=== PATIENT | female | born 1980 | race Two or more races ===

== ENCOUNTER → 2020-01-18 | Day surgery (SDC) | payer MEDICAID ==
[2020-01-15 10:41] LABS: APPEARANCE,URINE SLIGHTLY CLOUDY; BILIRUBIN, URINE NEGATIVE (NEGATIVE); COLOR,URINE PALE YELLOW; GLUCOSE, URINE (UA) NEGATIVE (NEGATIVE); KETONES,URINE NEGATIVE (NEGATIVE); LEUKOCYTE ESTERASE ,URINE 2+ (NEGATIVE); NITRITE,URINE NEGATIVE (NEGATIVE); PH,URINE 6.5 (4.5-8.0); PROTEIN,URINE NEGATIVE (NEGATIVE); UROBILINOGEN,URINE NORMAL MG/DL (0.0-1.0)
[2020-01-15 10:46] LABS: ANION GAP 5 mmol/L (5-15); BLOOD UREA NITROGEN 15 mg/dL (7-18); CALCIUM 8.5 MG/DL (8.5-10.1); CARBON DIOXIDE 29 MMOL/L (21-32); CHLORIDE 105 MMOL/L (98-107); CREATININE 0.8 MG/DL (0.55-1.30); POTASSIUM 3.8 MMOL/L (3.5-5.1); SODIUM 139 MMOL/L (136-145)
[2020-01-15 10:53] LABS: INR 1.1 (0.9-1.1)
[2020-01-15 11:04] LABS: BASOPHILS % (AUTO) 0.8 % (0.0-2.0); EOSINOPHILS % (AUTO) 2.5 % (0.0-3.0); HEMATOCRIT 40.8 % (37.0-47.0); HEMOGLOBIN 14.1 G/DL (12.0-16.0); MEAN CORPUSCULAR VOLUME 86 FL (80-99); MONOCYTES % (AUTO) 9.7 % (1.0-10.0); PLATELET COUNT 278 K/UL (150-450); RED BLOOD COUNT 4.76 M/UL (4.20-5.40); RED CELL DISTRIBUTION WIDTH 11.6 % (11.6-14.8); WHITE BLOOD COUNT 6.7 K/UL (4.8-10.8)
--- NOTE | 2020-01-15 12:45 | Pre-op HX & Phy Repo 2 SIG ---
DATE OF ADMISSION: 01/18/2020 DATE OF PLANNED SURGERY: Scheduled for outpatient surgery, January 18, 2020. HISTORY OF PRESENT ILLNESS: The patient is a 39-year-old female in overall good health with ductal carcinoma in situ of the left breast. The patient underwent imaging because of complaints of breast pain. She was found to have, in the left breast at 12 o'clock 2 cm from the nipple, a suspicious area measuring 0.8 x 0.8 x 1 cm. Core biopsy revealed ductal carcinoma in situ and a fibroadenomatoid nodule. She is scheduled to undergo left breast partial mastectomy with preoperative needle localization. The imaging also showed a benign stable mass in the right breast, which is being followed. PAST MEDICAL HISTORY/MEDICATIONS: None. ALLERGIES: None. OPERATIONS: Surgery for ectopic . REVIEW OF SYSTEMS: 3, para 3. She has regular menstrual periods. PHYSICAL EXAMINATION: GENERAL: The patient is 5 feet, 147 pounds. VITAL SIGNS: Within normal limits. HEENT: Within normal limits. LUNGS: Clear. HEART: Regular rhythm. BREASTS: Small and non-ptotic. There is no palpable mass in either breast. There is no axillary or supraclavicular lymphadenopathy. ABDOMEN: Soft. PELVIC: Per primary care. RECTAL: Per primary care. EXTREMITIES: Without edema. NEUROLOGIC: Physiologic. IMPRESSION: Ductal carcinoma in situ, left breast. PLAN: Left breast partial mastectomy with preoperative needle localization. I have had a full discussion with the patient regarding the nature of her condition, the nature of the surgery, indications, alternatives, options, and risks including bleeding, infection, scarring or distortion of breast or nipple, need for additional treatments based on final pathology, etc. The patient understands and agrees to proceed. Socrates Dunn M.D. DR: JANIYA JOB#: [id number] CC:
[~2020-01-18] VITALS: Ht 154.9 cm; Wt 66.7 kg
[2020-01-18] VITALS (10 sets, daily range): BP systolic 98–122; BP diastolic 57–79
[~2020-01-18] MED LIST: Bacitracin 50000 Units Vial ONE; D5 1/2NS 1,000 ML IV SCH; DiphenhydrAMINE 50mg/ml Inj IVP PRN; HYDROcodone/Acetamin 5/325 tab ORAL PRN; HYDROmorphone 1mg/ml Carpuject SUBQ PRN; Ketorolac 30mg Inj IV PRN; LORazepam Inj 2mg/ml 1ml IV PRN; LR 1000ml 1,000 ML IVLG SCH; LR 1000ml ONE; Labetalol 5mg/ml 20ml vial IV PRN; Lidocaine 1% MPF 10mg/ml 5ml ONE; Metoclopramide 10mg/2ml Inj IVP PRN; Midazolam 2mg/2ml Inj ONE; NS Irrig 1000ml ONE; NeoSporin Gu Irrig 1ml Amp IRRIG ONE; Sterile Water Irrig 1000ml IRRIG ONE; Tylenol #3 tab (300mg/30mg) ORAL PRN; fentaNYL 100 mcg/2 mL IV ONE; fentaNYL 100 mcg/2 mL IV PRN
--- NOTE | 2020-01-18 05:44 | Anethesia Preoperative Eval ---
Anesthesia Pre-op PMH/ROS General Date of Evaluation: Jan 18, 2020 Anesthesiologist: Dakota ASA Score: ASA 3 Mallampati Score Class I : Soft palate, uvula, fauces, pillars visible Class II: Soft palate, uvula, fauces visible Class III: Soft palate, base of uvula visible Class IV: Only hard plate visible Mallampati Classification: Class II Surgeon: Mona Diagnosis: Left breast cancer Surgical Procedure: Left breast partial mastectomy Anesthesia History: none Family History: no anesthesia problems Allergies: Coded Allergies: No Known Allergies (Unverified , 01/18/20) Medications: see eMAR Patient NPO?: Yes NPO Date: Jan 18, 2020 NPO Time: 00:00 Past Medical History Cardiovascular: Denies: HTN, CAD, AR, valve dz, arrhythmia, other Pulmonary: Denies: asthma, COPD, CHRIS, other Gastrointestinal/Genitourinary: Denies: GERD, CRI, ESRD, other Neurologic/Psychiatric: Denies: dementia, CVA, depression/anxiety, TIA, other Endocrine: Denies: DM, hypothyroidism, steroids, other HEENT: Denies: cataract (L), cataract (R), glaucoma, [place] (L), [place] (R), other Hematology/Immune: Denies: anemia, DVT, bleeding disorder, other Musculoskeletal/Integumentary: Reports: other - Left breast cancer; Denies: OA, RA, DJD, DDD, edema PSxH Narrative: ectopic Anesthesia Pre-op Phys. Exam Physician Exam see chart Constitutional: NAD Cardiovascular: RRR Respiratory: CTA Airway Exam Mallampati Score: Class II MO: full ROM: full Teeth: intact Anesthesia Pre-op A/P Labs see chart Risk Assessment & Plan Assessment: ASA III Plan: GA Status Change Before Surgery: No Pre-Antibiotics Drug: Bette Hernandez MD Jan 18, 2020 05:44
--- NOTE | 2020-01-18 11:31 | Pre-Procedure Note/Attestation ---
Pre-Procedure Note/Attestation Complete Prior to Procedure Planned Procedure: left Procedure Narrative: left breast partial mastectomy with pre-operative needle localization Indications for Procedure Pre-Operative Diagnosis: ductal carcinoma in situ left breast Attestation I attest that I discussed the nature of the procedure; its benefits; risks and complications; and alternatives (and the risks and benefits of such alternatives), prior to the procedure, with the patient (or the patient's legal risk control field representative). I attest that, if there was a reasonable possibility of needing a blood transfusion, the patient (or the patient's legal risk control field representative) was given the [facility] standardized written summary, pursuant to the [place] Blood Safety Act ([place] Health and Safety Code # 1645, as amended). I attest that I re-evaluated the patient just prior to the surgery and that there has been no change in the patient's H&P, except as documented below: none Socrates Dunn MD Jan 18, 2020 11:31
--- NOTE | 2020-01-18 12:58 | Brief Operative Note ---
Immediate Post Operative Note Operative Note Pre-op Diagnosis: ductal carcinoma in situ left breast Procedure: left breast partial mastectomy with pre-operative needle localization Post-op Diagnosis: same Post-op Diagnosis: same as pre-op Findings: consistent w/pre-op dx studies Surgeon: melisa Anesthesiologist: liz Specimen: yes - left breast tissue Complications: none Condition: stable Fluids: see anesthesia record Estimated Blood Loss: minimal Drains: none Implant(s) used?: No Socrates Dunn MD Jan 18, 2020 12:58
--- NOTE | 2020-01-18 12:59 | Immediate Post-Op Evaluation ---
Immediate Post-Op Evalulation Immediate Post-Op Evalulation Procedure: Left breast partial mastectomy Date of Evaluation: Jan 18, 2020 Time of Evaluation: 13:01 IV Fluids: 500 Blood Products: 0 Estimated Blood Loss: min Urinary Output: 0 Blood Pressure Systolic: 98 Blood Pressure Diastolic: 57 Pulse Rate: 55 Respiratory Rate: 16 O2 Sat by Pulse Oximetry: 100 Temperature (Fahrenheit): 97.4 Pain Score (1-10): 0 Nausea: No Vomiting: No Complications 0 Patient Status: awake, reacts, patent, none Hydration Status: adequate Drug: Ancef 1g Given Within 1 Hr of Incision: Yes Bette Duncan MD Jan 18, 2020 12:59
--- NOTE | 2020-01-18 12:59 | 48 Hour Post Anesthesia Eval ---
Post Anesthesia Evaluation Procedure: Left breast partial mastectomy Date of Evaluation: Jan 18, 2020 Airway: patent Nausea: No Vomiting: No Pain Intensity: 0 Hydration Status: adequate Cardiopulmonary Status: at baseline Mental Status/LOC: patient returned to baseline Post-Anesthesia Complications: 0 Follow-up care needed: ready to discharge Bette Duncan MD Jan 18, 2020 12:59
--- NOTE | 2020-01-18 14:15 | Operative Note - Dictated ---
DATE OF OPERATION: 01/18/2020 SURGEON: Socrates Dunn MD BUREAU CHIEF: None. ANESTHESIOLOGIST: Bette Duncan MD. TYPE OF ANESTHESIA: General. PREOPERATIVE DIAGNOSIS: Ductal carcinoma in situ, left breast. POSTOPERATIVE DIAGNOSIS: Ductal carcinoma in situ, left breast. OPERATION PERFORMED: Left breast partial mastectomy with preoperative needle localization. DESCRIPTION OF PROCEDURE: The patient was taken to the operating room and under general anesthesia with sequential compression device stockings in place, she was prepped and draped in usual fashion. The lesion was located in the superior and midline breast. A curvilinear incision was made achieving hemostasis with cautery and dissecting flaps circumferentially. The wire was brought into the field. There were multiple arterial bleeders that had to be cauterized. The appropriate sector of breast tissue was resected down to chest wall. Specimen radiograph confirmed the presence of the wire and the clip within the tissue. The field was irrigated with water and antibiotic solution and hemostasis carefully achieved with cautery. The incision was closed with interrupted 3-0 Vicryl deep dermal subcutaneous sutures but there was a plexus of dermal arterials and some of the Vicryl had to be removed and hemostasis achieved with cautery best to have several 3-0 Vicryl subcutaneous sutures which were placed and then skin closed with vinayak. Tincture of benzoin and half-inch Steri-Strips were applied followed by dry sterile dressing. Final sponge and needle counts were correct. The patient tolerated the procedure well and left the operating room in good condition. Socrates Dunn M.D. DR: Nayana JOB#: [id number] CC:
== END | disposition home or self-care (01) ==
LOC: SUR 09:47
DX: D05.12 Intraductal carcinoma in situ of left breast (principal)
CPT/HCPCS: 19301; 36415; 80048; 81001; 81025; 85025; 85610; 85730; 94003; J0690; J1100; J2250; J2405; J2704; J3010; J7120; U0002; Z7512; 94150

== ENCOUNTER 2020-03-09 09:10 | Inpatient (IN) | payer MEDICAID ==
[2020-03-07 11:03] LABS: BASOPHILS % (AUTO) 1.4 % (0.0-2.0); EOSINOPHILS % (AUTO) 2.4 % (0.0-3.0); HEMATOCRIT 38.1 % (37.0-47.0); HEMOGLOBIN 13.3 G/DL (12.0-16.0); LYMPHOCYTES % (AUTO) 24.8 % (20.0-45.0); MEAN CORPUSCULAR VOLUME 85 FL (80-99); MONOCYTES % (AUTO) 11.2 % (1.0-10.0); NEUTROPHILS % (AUTO) 60.3 % (45.0-75.0); PLATELET COUNT 270 K/UL (150-450); RED BLOOD COUNT 4.48 M/UL (4.20-5.40); RED CELL DISTRIBUTION WIDTH 13.7 % (11.6-14.8)
[2020-03-07 11:40] LABS: BLOOD UREA NITROGEN 14 mg/dL (7-18); CALCIUM 8.7 MG/DL (8.5-10.1); CARBON DIOXIDE 25 MMOL/L (21-32); CREATININE 0.7 MG/DL (0.55-1.30)
[2020-03-07 11:52] LABS: CHLORIDE 104 MMOL/L (98-107); POTASSIUM 3.6 MMOL/L (3.5-5.1); SODIUM 138 MMOL/L (136-145)
--- NOTE | 2020-03-07 13:30 | Pre-op HX & Phy Repo 2 SIG ---
DATE OF ADMISSION: 03/09/2020 DATE OF SURGERY: Scheduled for surgery March 09, 2020. HISTORY OF PRESENT ILLNESS: The patient is a 39-year-old female in overall good health who underwent breast imaging recently revealing a suspicious solid mass in the left breast at 12 o'clock 2 cm from the nipple. Core biopsy revealed ductal carcinoma in situ. She underwent surgery January 18, 2020 involving left breast partial mastectomy with preoperative needle localization. The pathology, however, revealed invasive lobular carcinoma as well as ductal carcinoma in situ and lobular carcinoma in situ. The margins were clear. The patient was seen in consultation with Medical Oncology, who recommended and of course we agree that the patient requires left axillary lymph node biopsy with dissection. PAST MEDICAL HISTORY/MEDICATIONS: None. ALLERGIES: None. OPERATIONS: Ectopic and left breast partial mastectomy with preoperative needle localization, January 18, 2020. REVIEW OF SYSTEMS: She is 3, para 3. She has regular menstrual periods. FAMILY HISTORY: No history of breast or ovarian cancer. PHYSICAL EXAMINATION: GENERAL: The patient is 5 feet, 148 pounds. VITAL SIGNS: Within normal limits. HEENT: Within normal limits. LUNGS: Clear. HEART: Regular rhythm. BREASTS: Reveal a nicely healed left breast incision. Right breast has no palpable mass. There is no palpable axillary or supraclavicular lymphadenopathy. ABDOMEN: Soft. PELVIC: Per primary care. RECTAL: Per primary care. EXTREMITIES: Without edema. NEUROLOGIC: Physiologic. IMPRESSION: Invasive lobular carcinoma, left breast, as well as ductal carcinoma in situ and lobular carcinoma in situ, status post partial mastectomy with clear margins. PLAN: Left axillary lymph node dissection, biopsy. DISCUSSION: I have had a full discussion with the patient regarding the nature of her condition, the need for lymph node biopsy, indications, alternatives, options, and risks including bleeding, infection, need for drain, need for overnight admission, neuritis or neuralgia, etc. All questions have been answered. She understands and agrees to proceed. Socrates Dunn M.D. DR: JANIYA JOB#: [id number] CC:
[~2020-03-09] VITALS: Ht 154.9 cm; Wt 65.8 kg
[2020-03-09] VITALS (12 sets, daily range): BP systolic 102–113; BP diastolic 57–69
[2020-03-09] MEDS ORDERED: Midazolam 2mg/2ml Inj ONE (10:20)
[2020-03-09] MEDS ORDERED: fentaNYL 100 mcg/2 mL IV ONE (10:20)
[2020-03-09] MEDS ORDERED: Lidocaine 1% MPF 10mg/ml 5ml ONE (10:24)
[2020-03-09] MEDS ORDERED: Ketorolac 30mg Inj ONE (10:24)
[2020-03-09] MEDS ORDERED: Lidocaine 1% Plain 30 ml INJ ONE (10:31)
[2020-03-09] MEDS ORDERED: Bacitracin 50000 Units Vial ONE (10:31)
--- NOTE | 2020-03-09 10:39 | Pre-Procedure Note/Attestation ---
Pre-Procedure Note/Attestation Complete Prior to Procedure Planned Procedure: left Procedure Narrative: left axillary lymph node dissection Indications for Procedure Pre-Operative Diagnosis: invasive lobular carcinoma left breast Attestation I attest that I discussed the nature of the procedure; its benefits; risks and complications; and alternatives (and the risks and benefits of such al ternatives), prior to the procedure, with the patient (or the patient's legal provider relations representative). I attest that, if there was a reasonable possibility of needing a blood transfusion, the patient (or the patient's legal provider relations representative) was given the [place] [facility] standardized written summary, pursuant to the [place] Blood Safety Act ([place] Health and Safety Code # 1645, as amended). I attest that I re-evaluated the patient just prior to the surgery and that there has been no change in the patient's H&P, except as documented below: none Socrates Dunn MD Mar 09, 2020 10:39
--- NOTE | 2020-03-09 10:54 | Anethesia Preoperative Eval ---
Anesthesia Pre-op PMH/ROS General Date of Evaluation: Mar 09, 2020 Time of Evaluation: 10:51 Anesthesiologist: Jie ASA Score: ASA 2 Mallampati Score Class I : Soft palate, uvula, fauces, pillars visible Class II: Soft palate, uvula, fauces visible Class III: Soft palate, base of uvula visible Class IV: Only hard plate visible Mallampati Classification: Class II Surgeon: Mona Diagnosis: L breast CA Surgical Procedure: L axillary l/nodes dissection Anesthesia History: none Family History: no anesthesia problems Allergies: Coded Allergies: No Known Allergies (Unverified , 01/18/20) Medications: see eMAR Patient NPO?: Yes Past Medical History Cardiovascular: Denies: HTN, CAD, [place], valve dz, arrhythmia, other Pulmonary: Denies: asthma, COPD, CHRIS, other Gastrointestinal/Genitourinary: Reports: GERD - milld; Denies: CRI, ESRD, other Neurologic/Psychiatric: Reports: depression/anxiety; Denies: dementia, CVA, TIA, other Endocrine: Denies: DM, hypothyroidism, steroids, other HEENT: Denies: cataract (L), cataract (R), glaucoma, [place] (L), [place] (R), other Hematology/Immune: Denies: anemia, DVT, bleeding disorder, other Musculoskeletal/Integumentary: Denies: OA, RA, DJD, DDD, edema, other PMH Narrative: as above PSxH Narrative: L partial mastectomy, ectopic Anesthesia Pre-op Phys. Exam Physician Exam Last Vital Signs Date Time Temp Pulse Resp B/P (MAP) Pulse Ox O2 Delivery O2 Flow Rate FiO2 03/09/20 10:25 Room Air 03/09/20 10:03 98.1 64 18 108/57 99 Constitutional: NAD Neurologic: CN 2-12 intact Cardiovascular: RRR, no M/R/G Respiratory: CTA Gastrointestinal: S/NT/ND Airway Exam Mallampati Score: Class II MO: full Neck: flexible ROM: full Teeth: intact Dentures: no upper, no lower Anesthesia Pre-op A/P Labs see chart Urine Test Test 03/09/20 09:20 Urine HCG, Qualitative Negative (NEGATIVE) Studies Pre-op Studies: EKG - NSR Risk Assessment & Plan Assessment: ASA 2 Plan: GA with LMA Status Change Before Surgery: No Pre-Antibiotics Drug: Ancef 1gr. Given Within 1 Hr of Incision: Yes Time Given: 11:10 Jesus Ceron MD Mar 09, 2020 10:53
[2020-03-09] MEDS ORDERED: NS Irrig 1000ml ONE (11:00)
[2020-03-09] MEDS ORDERED: Sterile Water Irrig 1000ml IRRIG ONE (11:00)
[2020-03-09] MEDS ORDERED: LR 1000ml ONE (11:00)
[2020-03-09] MEDS ORDERED: Ketorolac 30mg Inj IV PRN (11:30)
[2020-03-09] MEDS ORDERED: LR 1000ml 1,000 ML IVLG SCH (11:30)
[2020-03-09] MEDS ORDERED: Meperidine 25mg/1ml Inj (FOR RIGORS ONLY) IV PRN (11:30)
[2020-03-09] MEDS ORDERED: DiphenhydrAMINE 50mg/ml Inj IVP PRN (11:30)
[2020-03-09] MEDS ORDERED: HYDROmorphone 1mg/ml Carpuject SUBQ PRN (12:00)
[2020-03-09] MEDS ORDERED: HYDROcodone/Acetamin 5/325 tab ORAL PRN (12:00)
[2020-03-09] MEDS ORDERED: Metoclopramide 10mg/2ml Inj IVP PRN (12:00)
--- NOTE | 2020-03-09 12:00 | Brief Operative Note ---
Immediate Post Operative Note Operative Note Pre-op Diagnosis: invasive lobular carcinoma left breast Procedure: left axillary lymph node dissection Post-op Diagnosis: same Post-op Diagnosis: same as pre-op Findings: consistent w/pre-op dx studies Surgeon: melisa Anesthesiologist: emma Specimen: yes - left axillary lymph nodes Complications: none Condition: stable Fluids: see anesthesia record Estimated Blood Loss: minimal Drains: EMILI Implant(s) used?: No Socrates Dunn MD Mar 09, 2020 12:00
--- NOTE | 2020-03-09 12:09 | Immediate Post-Op Evaluation ---
Immediate Post-Op Evalulation Immediate Post-Op Evalulation Procedure: L axillary l/nodes dissection Date of Evaluation: Mar 09, 2020 Time of Evaluation: 12:07 IV Fluids: 600 Blood Products: none Estimated Blood Loss: min Urinary Output: none Blood Pressure Systolic: 118 - 76 Blood Pressure Diastolic: 76 Pulse Rate: 82 Respiratory Rate: 20 O2 Sat by Pulse Oximetry: 98 Temperature (Fahrenheit): 97.8 Pain Score (1-10): 1 Nausea: No Vomiting: No Complications none Patient Status: reacts, patent, none Hydration Status: adequate Jesus Ceron MD Mar 09, 2020 12:09
--- NOTE | 2020-03-09 14:00 | NUR ---
Patient arrived to unit at 1307 via bed from PACU in no distress, drowsy but arousable to voice. VS stable. Belongings checked at bedside by charge nurse. IV intact, patent. Reporting no pain. Surgical site dressing clean and intact, EMILI drain compressed with serosanguinous output noted. SCD's on. Patient oriented to room. Side rails upx2, bed low and locked, call light within reach.
--- NOTE | 2020-03-09 14:15 | Operative Note - Dictated ---
DATE OF OPERATION: 03/09/2020 SURGEON: Socrates Dunn MD. DISPENSING LEAD: None. ANESTHESIOLOGIST: Jesus Ceron MD. TYPE OF ANESTHESIA: General. PREOPERATIVE DIAGNOSIS: Invasive lobular carcinoma, left breast. POSTOPERATIVE DIAGNOSIS: Invasive lobular carcinoma, left breast. OPERATION PERFORMED: Left axillary lymph node dissection biopsy. INDICATIONS: The patient underwent surgery January 18, 2020 involving left breast partial mastectomy for preoperative diagnosis of ductal carcinoma in situ. Postoperative diagnosis, however, revealed invasive lobular carcinoma as well as ductal carcinoma and lobular carcinoma in situ. The margins were clear. The patient was seen by Oncology and advised to undergo axillary lymph node biopsy. DESCRIPTION OF PROCEDURE: The patient was taken to the operating room and under general anesthesia with sequential compression device stockings in place, she was prepped and draped in usual fashion. A vertical left axillary incision was made achieving hemostasis with cautery and incising the clavipectoral fascia. Initially, it felt that there was a firm abnormal node and this was resected using the Thunderbeat vessel sealing electrosurgical device but pathology inspection revealed only muscle tissue from latissimus muscle. The lower level axillary dissection was performed with the Thunderbeat and the specimen confirmed by pathology to have a lymph node tissue. The field was irrigated and hemostasis carefully achieved through a separate stab incision inferiorly. A 10 flat Aly drain was placed into the axilla and sutured to the skin with a 2-0 silk skin suture. After ascertaining that hemostasis was secured, the clavipectoral fascia was closed with interrupted 3-0 Vicryl. The subcutaneous tissues closed with interrupted 3-0 Vicryl and the skin closed with continuous 4-0 Monocryl subcuticular suture. Benzoin and half-inch Steri-Strips were applied followed by dry sterile dressing. Final sponge and needle counts were correct. The Aly drain was placed to bulb suction. The patient tolerated the procedure well and left the operating room in good condition. Socrates Dunn M.D. DR: Nayana JOB#: [id number] CC: MARIO
[2020-03-09] MEDS: D5 1/2NS w/KCl 20mEq 1,000 ML IV SCH (17:29)
[2020-03-09] MEDS: ceFAZolin sod 1 GM in D5W 55 ML IV SCH (18:45)
--- NOTE | 2020-03-09 19:30 | NUR ---
NURSE HAND-OFF: Important Events on Shift: Post-op, ambulated, voided, assisted with drain care. Patient Status: stable Diet: Regular Pending Orders: N/A Pending Results/Labs: N/A Pending MD notification: N/A Latest Vital Signs: Temperature 98.0 , Pulse 72 , B/P 102 /66 , Respiratory Rate 16 , O2 SAT 100. Vital Sign Comment: VS stable Latest Elaine Fall Score: 35 Fall Risk: Medium Risk Safety Measures: Call light Within Reach, Bed Alarm , Side Rails Side Rails x2, Bed position Low and Locked. Fall Precautions: Yellow Socks Patient Fall Education Report given to Lori MOISE.
--- NOTE | 2020-03-09 20:16 | NUR ---
Nurses Note: Received report from SUMA Granger. Rounds made. Pt in bed, A/OX4, denies pain or discomfort at this time. No outward s/s of distress noted. Breathing pattern is even and unlabored on RA. Dressing L axillary, is clean dry intact. EMILI drain noted. Serosanguineous output. Pt to be taught how to empty EMILI drain. Will perform bedside teaching at med round with pt. All due meds will be administered . Bed at lowest level. Call light within reach. Pt will continue to be monitored .
[2020-03-10] VITALS: BP 90/58
[2020-03-10] MEDS: ceFAZolin sod 1 GM in D5W 55 ML IV SCH (03:16)
[2020-03-10 04:00] VITALS: BP 96/63
[2020-03-10] MEDS: D5 1/2NS w/KCl 20mEq 1,000 ML IV SCH (05:48)
--- NOTE | 2020-03-10 06:54 | NUR ---
NURSE HAND-OFF: Important Events on Shift:[Bed side teach for proper way to empty EMILI drain. Pt demonstrated properly] Patient Status: [Stable] Diet: [Regular] Pending Orders: [None] Pending Results/Labs:[None] Pending MD notification:[None] Latest Vital Signs: Temperature 98.1 , Pulse 75 , B/P 96 /63 , Respiratory Rate 17 , O2 SAT 94 , Room Air, O2 Flow Rate 3 . Vital Sign Comment: [WNL] Latest Elaine Fall Score: 35 Fall Risk: Medium Risk Safety Measures: Call light Within Reach, Bed Alarm , Side Rails Side Rails x2, Bed position Low and Locked. Fall Precautions: Yellow Socks Patient Fall Education Report given to [].
--- NOTE | 2020-03-10 07:44 | NUR ---
HAND OFF: Report given to SUMA John
--- NOTE | 2020-03-10 07:45 | NUR ---
NURSE NOTES: Pt lying in bed w/bed in lowest position and call light within reach. Pt A&Ox4, VSS, and in no apparent distress; pt denies experiencing any pain at the surgical site at this time. IV site intact/asymptomatic and surgical dressing C/D/I. Pt scheduled to be D/C'd home this morning. Will continue to monitor.
[2020-03-10 08:00] VITALS: BP 108/70
--- NOTE | 2020-03-10 08:59 | General Progress Note ---
Progress Note Progress Note AVSS Doing well, No pain this morning. Left axillary incision is clean, EMILI drain 25cc serosang Imp: doing well Plan: Discharge with EMILI drain Instructions/limitations/supplies discussed/provided Rx none f/u office 03/14 Socrates Dunn MD Mar 10, 2020 08:59
[2020-03-10 09:07] VITALS: BP 112/76
--- NOTE | 2020-03-10 09:07 | 48 Hour Post Anesthesia Eval ---
Post Anesthesia Evaluation Procedure: L axillary l/nodes dissection Date of Evaluation: Mar 10, 2020 Time of Evaluation: 09:06 Blood Pressure Systolic: 112 0: 76 Pulse Rate: 74 Respiratory Rate: 20 Temperature (Fahrenheit): 97.6 O2 Sat by Pulse Oximetry: 98 Airway: patent Nausea: No Vomiting: No Pain Intensity: 2 Hydration Status: adequate Cardiopulmonary Status: stable Mental Status/LOC: patient returned to baseline Follow-up Care/Observations: n/a Post-Anesthesia Complications: none Follow-up care needed: ready to discharge Jesus Ceron MD Mar 10, 2020 09:07
--- NOTE | 2020-03-10 11:00 | NUR ---
NURSE NOTES: Pt D/C'd in stable condition and w/all belongings accounted for. Provided pt w/D/C summary; reminded her of the date and time of her f/u appointment w/; and instructed her on how to empty & document EMILI drain output in the morning, afternoon, and before bed. Escorted pt downstairs via w/c to 's vehicle.
--- NOTE | 2020-03-14 11:15 | Discharge Summary ---
Discharge Summary Hospital Course Date of Admission Mar 09, 2020 at 15:19 Date of Discharge Mar 10, 2020 at 10:45 Admitting Diagnosis Invasive lobular carcinoma, left breast. Reason for Hospitalization: Elective surgery HPI Kiana Bennett is a 39 year old female who was admitted on Mar 09, 2020 at 15:19 for invasive lobular carcinoma, left breast. 39-year-old female in overall good health , underwent breast imaging recently, revealing a suspicious solid mass in the left breast at 12 o'clock 2 cm from the nipple. Core biopsy revealed ductal carcinoma in situ. She underwent surgery ON January 18, 2020 involving left breast partial mastectomy with preoperative needle localization. The pathology, however, revealed invasive lobular carcinoma as well as ductal carcinoma in situ and lobular carcinoma in situ. The margins were clear. The patient was seen in consultation with Medical Oncology. Patient required left axillary lymph node biopsy with dissection. Patient was admitted for elective surgery/procedure. Procedures s/p 03/[address] Dunn Left axillary lymph node dissection biopsy. Hospital Course status post surgery course of recovery uneventful initially IV fluids s/p perioperative antibiotic EMILI output closely monitored left axillary incision remained clean patient was instructed on care of the EMILI drain. pain management addressed , pain controlled and resolved remained hemodynamically stable tolerated diet ambulated voided freely patient was stable for discharge instruction/limitations/supplies discussed/provided follow-up in the office 03/14 FINAL DIAGNOSES Invasive lobular carcinoma, left breast s/p Left axillary lymph node dissection biopsy Discharge Medications Medication Profile: No Active Prescriptions or Reported Meds Discharge Condition Upon Discharge: stable Discharge Vital Signs Last Vital Signs Date Time Temp Pulse Resp B/P (MAP) Pulse Ox O2 Delivery O2 Flow Rate FiO2 03/10/20 09:07 74 20 98 03/10/20 09:00 Room Air 03/10/20 08:00 97.9 108/70 (83) 03/09/20 12:59 3 Discharge Disposition Patient was discharged home Discharge Instructions Discharge Instructions Special Instructions I have been assigned to complete a D/C Summary on this account. I was not involved in the patient management Rosanne Arnold NP Mar 14, 2020 11:15
== END 2020-03-10 10:45 | disposition home or self-care (01) | DRG 364 ==
LOC: SUR 09:10 → 3E 15:19
PROC: 07B60ZX Excision of Left Axillary Lymphatic, Open Approach, Diagnostic (ICD-10-PCS; principal; 2020-03-09 11:00)
DX: C50.812 Malignant neoplasm of overlapping sites of left female breast (principal); Z98.890 Other specified postprocedural states
CPT/HCPCS: 36415; 80048; 81025; 85025; 85610; 85730; 94003; 94150; J2250; U0002